=== PATIENT | female | born 1980 | race Two or more races ===

== ENCOUNTER 2022-11-18 11:44 | Emergency (ER) | payer OTHER, MEDICAID ==
[~2022-11-18] VITALS: Ht 160 cm; Wt 58.0 kg
[2022-11-18 12:33] VITALS: BP 145/78
[2022-11-18] MEDS ORDERED: ACETAMINOPHEN 500 MG TAB PO ONE (13:30)
[2022-11-18] MEDS ORDERED: IBUP-1454 PO (13:45)
[2022-11-18] MEDS ORDERED: METH-1181 PO (13:45)
== END 2022-11-18 13:48 | disposition home or self-care (01) ==
LOC: ER 11:44
DX: S16.1XXA Strain of muscle, fascia and tendon at neck level, initial encounter (principal); S39.012A Strain of muscle, fascia and tendon of lower back, initial encounter; I10 Essential (primary) hypertension; Z88.0 Allergy status to penicillin; V49.49XA Driver injured in collision with other motor vehicles in traffic accident, initial encounter; Y93.I9 Activity, other involving external motion; Y92.89 Other specified places as the place of occurrence of the external cause; Y99.8 Other external cause status
CPT/HCPCS: 72040; 72100